=== PATIENT | female | born 1980 | race Caucasian/White ===

== ENCOUNTER 2023-07-18 17:57 | Emergency (ER) | payer OTHER, SELFPAY ==
[2023-07-18 18:30] VITALS: BP 148/78; PULSE 73; RESP 18; TEMP 36.8; O2SAT 98; BMI 36.7
--- NOTE | 2023-07-18 19:07 | ED_ITS ---
Discharge Plan Disposition Patient Disposition: Home, Self-Care Condition: Good Prescriptions Prescriptions: New sulfamethoxazole-trimethoprim [Bactrim DS] 800-160 mg tablet 1 tab PO Q12H Qty: 20 0RF mupirocin 2 % ointment 1 applic topical BID Qty: 15 0RF Rx Instructions: apply to q tip and apply to area in nostril Referrals Follow up/Referrals: Francie Maria APRN [Primary Care Provider] - See instructions Activity Restrictions/Add. Instructions Additional Instructions/Restrictions: finish antibiotics apply cream to area in nose return if symptoms worsen or no improvement follow up with pcp Clinical Impressions Clinical Impression: Cellulitis and abscess of face Impacted ear wax Qualifiers: Laterality: left Qualified Code(s): H61.22 - Impacted cerumen, left ear Instructions Patient Instructions: DI for Cellulitis -- Adult, DI for Cerumen Impaction Discharge ED Provider: Emmanuelle ([facility])Eduardo [facility] [place] HPI General Stated complaint: LT side jaw pain, ear ache Mode of Arrival: Ambulatory Source of Information: Patient Limitations: No Limitations Time Seen by Provider: 07/18/23 19:07 Description of Symptoms (Recalled from Triage Doc. by RN): Pt is complaining of pain in L jaw, ear, and down into neck. HEENT Symptoms (Recalled from RN notes): Yes Resp Symptoms (Recalled from RN notes): No Skin Symptoms (Recalled from RN notes): No MS Symptoms (Recalled from RN notes): No Functional Status (Recalled from RN notes): n/a History of Present Illness Provider Complaint: 43 yr old female presents for pain in the L jaw, ear, and down into neck. pt states she also has a bump on the inside nose and swelling Related Data Previous Rx's Medication Instructions Recorded mupirocin 2 % topical ointment 1 applic topical BID #15 grams 07/18/23 sulfamethoxazole 800 1 tab PO Q12H #20 tabs 07/18/23 mg-trimethoprim 160 mg tablet (Bactrim DS) Allergies Allergy/AdvReac Type Severity Reaction Status Date / Time No Known Allergies Allergy Verified 07/18/23 18:43 Worker's Comp Is this a Worker's Comp case?: No [facility] Disclaimer: The information contained in this section may have been updated after the patient was seen, as this information can be updated by other users. Social History , [employer] TECH[employer]ICIAN) Smoking Status: Smoker, status unknown alcohol intake: never current occupational status: employed Travel in the last 8 weeks: None ROS Obtained: Yes All systems reviewed & no additional complaints except as documented Constitutional Constitutional: Reports system reviewed and no additional complaints, except as documented and Reports as per HPI Eyes Eyes: Reports system reviewed and no additional complaints, except as documented and Reports as per HPI ENT Ears, Nose, Mouth, and Throat: Reports system reviewed and no additional complaints, except as documented, Reports as per HPI, Reports otalgia, Reports sore throat and Reports other (jaw pain) Cardiovascular Cardiovascular: Reports system reviewed and no additional complaints, except as documented Respiratory Respiratory: Reports system reviewed and no additional complaints, except as documented Gastrointestinal Gastrointestingal: Reports system reviewed and no additional complaints, except as documented Integumentary/Breasts Skin/Breast: Reports system reviewed and no additional complaints, except as documented Neurologic Neurologic: Reports system reviewed and no additional complaints, except as documented Endocrine Endocrine: Reports system reviewed and no additional complaints, except as documented Allergic/Immunologic Allergic/Immunologic: Reports system reviewed and no additional complaints, except as documented Physical Exam General General appearance: alert and in no apparent distress Head Head exam: atraumatic Eye Eye exam: Present normal appearance and PERRL ENT ENT exam: Present mucous membranes moist Expanded ENT Exam TM/Canal exam: Left TM: cerumen impaction Nose/Mouth Image: 1. red bump Respiratory Respiratory exam: Present normal lung sounds bilaterally Cardiovascular Cardiovascular exam: Present regular rate and normal rhythm Neurological Exam Neurological exam: Present alert and oriented X3 Skin Skin exam: Present warm, intact and normal color Medical Decision Making Medical Records Medical records reviewed: Yes I reviewed the patient's medical records. Emanuel Inquiry Pt receiving controlled substance: No Emanuel was queried for this patient: No Vital Signs: 07/18/23 18:30 Temperature 98.2 F Temperature Source Oral Pulse Rate [Right Radial] 73 Respiratory Rate 18 Blood Pressure [Right Arm] 148/78 H Blood Pressure Mean [Right Arm] 101 Blood Pressure Source [Right Arm] Automatic Cuff Blood Pressure Position [Right Arm] Sitting 02 Sat by Pulse Oximetry 98 Oxygen Delivery Method Room Air Lab Data Lab results reviewed: Yes I reviewed the patient's lab results.
[2023-07-18] MEDS: SULFA/TRIMETHOPRIM 1 TABLET 1 EACH PO (19:30)
[2023-07-18 19:34] VITALS: BP 148/78; PULSE 73; RESP 18; TEMP 36.8; O2SAT 98
== END 2023-07-18 19:34 | disposition home or self-care (01) ==
PROVIDERS: Emergency Provider Nurse Practitioner Family; PCP Nurse Practitioner
DX: L02.01 Cutaneous abscess of face (principal); L03.211 Cellulitis of face; H61.22 Impacted cerumen, left ear; R68.84 Jaw pain
CPT/HCPCS: 99204; 99212; G0463

== ENCOUNTER 2023-11-10 14:32 | Emergency (ER) | payer OTHER, SELFPAY ==
[2023-11-10 15:05] VITALS: BP 129/59; PULSE 71; RESP 20; TEMP 36.9; O2SAT 99; BMI 34.9
--- NOTE | 2023-11-10 15:32 | EXP.UTC ---
Discharge Plan Disposition Patient Disposition: Home, Self-Care Condition: Good Prescriptions Prescriptions: New ibuprofen 800 mg tablet 800 mg PO Q8H PRN (Reason: pain) Qty: 30 0RF Rx Instructions: Take with food No Action Orilissa 150 mg tablet 150 mg PO DAILY Qty: 30 3RF Referrals Follow up/Referrals: Francie Maria APRN [Primary Care Provider] - See instructions Activity Restrictions/Add. Instructions Additional Instructions/Restrictions: Follow up with primary care. Clinical Impressions Clinical Impression: Right shoulder pain Qualifiers: Chronicity: acute Qualified Code(s): M25.511 - Pain in right shoulder Instructions Patient Instructions: DI for Shoulder Pain Discharge ED Provider: Tabitha Willard [facility] General Stated complaint: right shoulder pain stiffness Mode of Arrival: Ambulatory Source of Information: Patient Limitations: No Limitations Time Seen by Provider: 11/10/23 15:32 Description of Symptoms (Recalled from Triage Doc. by RN): PATIENT C/O RIGHT SHOULDER PAIN WHEN LIFTING HER ARM. SHE STATES SHE RECENTLY HAD A TICK BITE TO RIGHT SIDE OF NECK. HEENT Symptoms (Recalled from RN notes): No Resp Symptoms (Recalled from RN notes): No Skin Symptoms (Recalled from RN notes): No MS Symptoms (Recalled from RN notes): Yes Functional Status (Recalled from RN notes): WNL History of Present Illness Provider Complaint: Pt reports right shoulder pain after push mowing her yard up and down a hill. She states that she has been taking Ibuprofen 800mg at home, but this has not helped. She reports shooting pain down her arm and numb fingers. She reports about a month ago she had a tick bite on the back of her neck. Related Data Previous Rx's Medication Instructions Recorded elagolix 150 mg tablet (Orilissa) 150 mg PO DAILY #30 tabs 08/13/23 ibuprofen 800 mg tablet 800 mg PO Q8H PRN pain #30 tabs 11/10/23 Allergies Allergy/AdvReac Type Severity Reaction Status Date / Time No Known Allergies Allergy Verified 08/13/23 15:04 Worker's Comp Is this a Worker's Comp case?: No [facility] Disclaimer: The information contained in this section may have been updated after the patient was seen, as this information can be updated by other users. Surgical History Hx of removal of cyst Next to her heart History of endometrial ablation Hx of tubal ligation Family History Other COPD (chronic obstructive pulmonary disease) Diabetes Social History Smoking Status: Smoker, status unknown alcohol intake: never current occupational status: employed Travel in the last 8 weeks: None ROS Obtained: Yes All systems reviewed & no additional complaints except as documented Constitutional Constitutional: Reports system reviewed and no additional complaints, except as documented Eyes Eyes: Reports system reviewed and no additional complaints, except as documented ENT Ears, Nose, Mouth, and Throat: Reports system reviewed and no additional complaints, except as documented Cardiovascular Cardiovascular: Reports system reviewed and no additional complaints, except as documented Respiratory Respiratory: Reports system reviewed and no additional complaints, except as documented Gastrointestinal Gastrointestingal: Reports system reviewed and no additional complaints, except as documented Genitourinary Female Genitourinary: Reports system reviewed and no additional complaints, except as documented Musculoskeletal Musculoskeletal: Reports arthralgias and Reports myalgias Integumentary/Breasts Skin/Breast: Reports system reviewed and no additional complaints, except as documented Neurologic Neurologic: Reports system reviewed and no additional complaints, except as documented Endocrine Endocrine: Reports system reviewed and no additional complaints, except as documented Hematologic/Lymphatic Henatologic/Lymphatic: Reports system reviewed and no additional complaints, except as documented Allergic/Immunologic Allergic/Immunologic: Reports system reviewed and no additional complaints, except as documented Physical Exam General General appearance: alert and in no apparent distress Head Head exam: atraumatic and normocephalic Eye Eye exam: Present normal appearance ENT ENT exam: Present normal exam and normal oropharynx Neck Neck exam: Present normal inspection Chest Chest inspection: Present normal inspection and symmetric chest wall rise Respiratory Respiratory exam: Present normal lung sounds bilaterally Cardiovascular Cardiovascular exam: Present regular rate and normal rhythm Abdominal Exam Abdominal exam: Present soft and normal bowel sounds Expanded Upper Extremity Exam Right: Shoulder exam: Present tenderness and tenderness over AC joint Arm exam: Present normal inspection Elbow exam: Present normal inspection Forearm/Wrist exam: Present normal inspection Hand exam: Present normal inspection Vascular exam: Normal capillary refill, radial pulse, ulnar pulse and brachial pulse Back Exam Back exam: Present normal inspection Neurological Exam Neurological exam: Present alert and oriented X3 Psychiatric Psychiatric exam: Present normal affect and normal mood Skin Skin exam: Present warm, dry and intact Lymphatic Lymphatic Findings: no adenopathy Medical Decision Making Emanuel Inquiry Pt receiving controlled substance: No Emanuel was queried for this patient: No Vital Signs: 11/10/23 15:05 Temperature 98.4 F Temperature Source Oral Pulse Rate [Left Brachial] 71 Respiratory Rate 20 Blood Pressure [Left Arm] 129/59 L Blood Pressure Mean [Left Arm] 82 Blood Pressure Source [Left Arm] Automatic Cuff Blood Pressure Position [Left Arm] Sitting 02 Sat by Pulse Oximetry 99 Oxygen Delivery Method Room Air Radiology Data #1: Image(s): Shoulder Image Reviewed: Yes I reviewed the patient's radiology results Preliminary Findings: Normal/NAD FINDINGS: Bones/joints: Normal. No acute fracture identified. Soft tissues: Normal. IMPRESSION: No acute findings.
[2023-11-10] MEDS: KETOROLAC 30MG/ML VIAL 30 MG IM (16:05)
[2023-11-10] MEDS: DEXAMETHASONE 4MG/ML 1ML VIAL 4 MG IM (16:05)
--- NOTE | 2023-11-10 16:11 | XR_ITS ---
PROCEDURE INFORMATION: Exam: XR Right Shoulder Exam date and time: 11/10/2023 4:21 PM Age: 43 years old Clinical indication: Shoulder; Right; Patient HX: States pain x2-3 weeks; Nki TECHNIQUE: Imaging protocol: Radiologic exam of the right shoulder. Views: 2 or more views. COMPARISON: No relevant prior studies available. FINDINGS: Bones/joints: Normal. No acute fracture identified. Soft tissues: Normal. IMPRESSION: No acute findings.
[2023-11-10 16:40] VITALS: BP 129/59; PULSE 71; RESP 20; TEMP 36.9; O2SAT 99
== END 2023-11-10 16:44 | disposition home or self-care (01) ==
PROVIDERS: Emergency Provider Nurse Practitioner Family; PCP Nurse Practitioner
DX: M25.511 Pain in right shoulder (principal); R20.0 Anesthesia of skin
CPT/HCPCS: 73030; 96372; 99212; 99214; G0463

== ENCOUNTER 2023-11-27 10:40 | Outpatient (CLI) | payer OTHER, SELFPAY ==
[2023-11-27 19:17] LABS: Basophils # 0.1 K/mm3 (0-0.2); Basophils % 0.7 % (0.1-2.0); Eosinophils # 0.3 K/mm3 (0.0-0.4); Eosinophils % 2.4 % (0.1-12.0); Hematocrit 46.4 % (37.0-47.0); Hemoglobin 15.1 g/dL (12.2-16.2); Lymphocytes # 3.4 K/mm3 (0.7-4.5); Lymphocytes % 29.4 % (10-50); Mean Corpuscular HGB Conc 32.5 g/dL (31.8-35.4); Mean Corpuscular Hemoglobin 31.2 pg (27.0-31.2); Mean Corpuscular Volume 95.9 fl (81-99); Mean Platelet Volume 9.2 fl (7.4-10.4); Monocytes # 0.4 K/mm3 (0.1-1.0); Monocytes % 3.7 % (1.7-9.3); Neutrophils # 7.4 K/mm3 (1.8-7.8); Neutrophils % 63.9 % (37.0-80.0); Platelet Count 308 K/mm3 (142-424); Red Blood Count 4.84 M/mm3 (4.20-5.40); Red Cell Distribution Width 13.7 % (11.5-17.5); White Blood Count 11.5 K/mm3 (4.8-10.8)
[2023-11-27 20:05] LABS: Alanine Aminotransferase 25 U/L (12-78); Albumin Level 4.4 g/dl (3.5-5.0); Albumin/Globulin Ratio 1.4 (1.1-1.8); Alkaline Phosphatase 90 U/L (38-126); Anion Gap 14.2 mEq/L (5-15); Aspartate Amino Transferase 27 U/L (14-36); Bilirubin,Total 0.7 mg/dl (0.2-1.3); Blood Urea Nitrogen 18 mg/dl (7-17); Calcium 9.3 mg/dl (8.4-10.2); Carbon Dioxide 23 mmol/L (22.0-30.0); Chloride 108 mmol/L (98-107); Chol/HDL Ratio 8.2 (1-3.5); Cholesterol 247 mg/dl (140-200); Estimated Glomerular Filt Rate 79 ml/min (>60); GFR (African American) 95 ML/MIN (>60); Globulin 3.1 g/dL (1.3-3.2); Glucose 88 mg/dl (74-100); HDL Cholesterol 30 mg/dl (40-60); Potassium 4.2 mmoL/L (3.5-5.1); Sodium 141 mmol/L (136-145); Total Protein,Serum 7.5 g/dl (6.3-8.2); Triglycerides 222 mg/dl (30-150); VLDL Cholesterol 44 mg/dL (0-40)
[2023-11-27 20:16] LABS: Direct LDL Cholesterol 149.35 mg/dL (100-129)
[2023-11-27 20:20] LABS: Hemoglobin A1C 5.4 % (4.0-6.0)
[2023-11-27 20:23] LABS: 25-OH Vitamin D, Total 28.7 ng/mL (30-100)
[2023-11-27 20:35] LABS: Thyroid Stimulating Hormone 1.01 uIU/mL (0.465-4.68)
[2023-11-27 20:54] LABS: Vitamin B12 274 pg/mL (239-931)
[2023-11-27 21:21] LABS: Microalbumin/Creatinine Ratio 3.3
[2023-11-27 21:23] LABS: Creatinine,Urine Random 233 mg/dL (Not Estab.)
== END 2023-11-27 23:59 | disposition home or self-care (01) ==
LOC: LAB.DROPOF 11-28 10:40
PROVIDERS: PCP Nurse Practitioner; Visit Provider Nurse Practitioner
DX: R73.01 Impaired fasting glucose (principal); E55.9 Vitamin D deficiency, unspecified
CPT/HCPCS: 36415; 80050; 80053; 80061; 82043; 82306; 82570; 82607; 83036; 84443; 85025

== ENCOUNTER 2024-02-26 19:11 | Outpatient (CLI) | payer OTHER, SELFPAY ==
[2024-02-26 19:22] LABS: 25-OH Vitamin D, Total 41.3 ng/mL (30-100)
[2024-02-26 19:47] LABS: Alanine Aminotransferase 20 U/L (12-78); Albumin/Globulin Ratio 1.3 (1.1-1.8); Alkaline Phosphatase 80 U/L (38-126); Anion Gap 9.3 mEq/L (5-15); Aspartate Amino Transferase 23 U/L (14-36); Bilirubin,Total 0.5 mg/dl (0.2-1.3); Blood Urea Nitrogen 14 mg/dl (7-17); Calcium 9.4 mg/dl (8.4-10.2); Carbon Dioxide 22 mmol/L (22.0-30.0); Chloride 110 mmol/L (98-107); Chol/HDL Ratio 6.2 (1-3.5); Cholesterol 223 mg/dl (140-200); Estimated Glomerular Filt Rate 78 ml/min (>60); GFR (African American) 95 ML/MIN (>60); Globulin 3.1 g/dL (1.3-3.2); Glucose 91 mg/dl (74-100); HDL Cholesterol 36 mg/dl (40-60); Potassium 4.3 mmoL/L (3.5-5.1); Sodium 137 mmol/L (136-145); Total Protein,Serum 7.1 g/dl (6.3-8.2); Triglycerides 143 mg/dl (30-150); VLDL Cholesterol 29 mg/dL (0-40)
[2024-02-26 19:58] LABS: Direct LDL Cholesterol 141.52 mg/dL (100-129)
[2024-02-26 20:17] LABS: Hemoglobin A1C 5.4 % (4.0-6.0)
[2024-02-26 20:35] LABS: Vitamin B12 568 pg/mL (239-931)
== END 2024-02-26 23:59 | disposition home or self-care (01) ==
LOC: LAB.DROPOF 19:12
PROVIDERS: PCP Nurse Practitioner; Visit Provider Nurse Practitioner
DX: R73.01 Impaired fasting glucose (principal); E53.8 Deficiency of other specified B group vitamins; E55.9 Vitamin D deficiency, unspecified; E78.5 Hyperlipidemia, unspecified
CPT/HCPCS: 80053; 80061; 82306; 82607; 83036

== ENCOUNTER 2024-03-23 10:45 | Outpatient (CLI) | payer OTHER, SELFPAY | END 2024-03-23 23:59 | disposition home or self-care (01) | LOC: LAB.DROPOF 03-25 11:52 | PROVIDERS: PCP Nurse Practitioner; Visit Provider Nurse Practitioner | DX: L02.415 Cutaneous abscess of right lower limb (principal); B95.7 Other staphylococcus as the cause of diseases classified elsewhere | CPT/HCPCS: 87070; 87077; 87186; 87205 ==

== ENCOUNTER 2024-07-13 08:40 | Outpatient (CLI) | payer OTHER, SELFPAY ==
--- NOTE | 2024-07-13 08:47 | XR_ITS ---
FINAL REPORT CLINICAL HISTORY: shoulder pain COMPARISON: None FINDINGS: RIGHT SHOULDER 2 views demonstrate no acute fracture or dislocation. The visualized joint spaces are normally aligned. The soft tissues are unremarkable. IMPRESSION: No acute bony abnormality. Reviewed, Interpreted and Dictated by Alex Hendrix MD Transcribed by Ivana Panchal Authenticated and . [facility]
--- NOTE | 2024-07-13 08:47 | XR_ITS ---
FINAL REPORT CLINICAL HISTORY: shoulder pain COMPARISON: None FINDINGS: LEFT SHOULDER 2 views of the left shoulder were obtained. There is no acute fracture or dislocation. The acromioclavicular and glenohumeral joints are intact. Small density in the distal supraspinatus tendon measuring 5 mm in greatest dimension may be related to calcific or ossific tendinitis. IMPRESSION: Small density distal supraspinatus tendon may be related to calcific or ossific tendinitis. Reviewed, Interpreted and Dictated by Alex Hendrix MD Transcribed by Ivana Panchal Authenticated and [facility]
== END 2024-07-13 23:59 | disposition home or self-care (01) ==
LOC: RAD 08:41
PROVIDERS: PCP Nurse Practitioner; Visit Provider Physician Assistant Surgical
DX: M25.511 Pain in right shoulder (principal); M25.512 Pain in left shoulder
CPT/HCPCS: 73030

== ENCOUNTER 2024-08-30 13:23 | Outpatient (CLI) | payer OTHER, SELFPAY ==
[2024-08-30 21:57] LABS: Coronavirus 19, PCR Not Detected (NotDetected); Influenza A, PCR Not Detected (NotDetected); Influenza B, PCR Not Detected (NotDetected); Respiratory Syncytial Virus Not Detected (NotDetected)
[2024-08-31 03:09] LABS: Human Rhinovirus Detected (NotDetected)
== END 2024-08-30 23:59 | disposition home or self-care (01) ==
LOC: LAB.DROPOF 08-31 12:52
PROVIDERS: PCP Nurse Practitioner; Visit Provider Nurse Practitioner
DX: J02.9 Acute pharyngitis, unspecified (principal)
CPT/HCPCS: 87631

== ENCOUNTER 2024-10-15 09:38 | Outpatient (CLI) | payer OTHER, SELFPAY ==
[2024-10-15 15:30] LABS: Coronavirus 19, PCR Not Detected (NotDetected); Human Rhinovirus Not Detected (NotDetected); Influenza A, PCR Not Detected (NotDetected); Influenza B, PCR Not Detected (NotDetected); Respiratory Syncytial Virus Not Detected (NotDetected)
== END 2024-10-15 23:59 | disposition home or self-care (01) ==
LOC: LAB.DROPOF 10-18 09:59
PROVIDERS: PCP Nurse Practitioner; Visit Provider Nurse Practitioner
DX: R05.9 Cough, unspecified (principal); R09.89 Other specified symptoms and signs involving the circulatory and respiratory systems
CPT/HCPCS: 87631

== ENCOUNTER 2024-12-06 11:48 | Outpatient (CLI) | payer OTHER, SELFPAY ==
[2024-12-06 19:17] LABS: Basophils # 0.1 K/mm3 (0-0.2); Eosinophils # 0.1 Kmm3 (0.0-0.4); Hematocrit 44.2 % (37.0-47.0); Immature Granulocytes # 0.01 10^3uL; Immature Granulocytes % 0.2 %; Lymphocytes % 50.5 % (10-50); Mean Corpuscular HGB Conc 31.7 g/dL (31.8-35.4); Mean Corpuscular Volume 91.7 fl (81-99); Mean Platelet Volume 10.8 fl (7.4-10.4); Monocytes # 0.4 K/mm3 (0.1-1.0); Monocytes % 6.8 % (1.7-9.3); Neutrophils # 2.4 K/mm3 (1.8-7.8); Neutrophils % 40.5 % (37.0-80.0); Nucleated Red Blood Cells # 0 10^3/uL; Nucleated Red Blood Cells % 0 %; Platelet Count 306 K/mm3 (142-424); Red Blood Count 4.82 M/mm3 (4.20-5.40); Red Cell Distribution Width 13.7 % (11.5-17.5); Red Cell Distribution Width-SD 46.4 fL; White Blood Count 5.9 K/mm3 (4.8-10.8)
[2024-12-06 19:48] LABS: Creatinine,Urine Random 150 mg/dL (Not Estab.); Microalbumin < 6.000 mg/L (0-16.7)
[2024-12-06 19:58] LABS: Alanine Aminotransferase 20 U/L (12-78); Albumin Level 4.3 g/dl (3.5-5.0); Albumin/Globulin Ratio 1.4 (1.1-1.8); Alkaline Phosphatase 79 U/L (38-126); Anion Gap 15.2 mEq/L (5-15); Aspartate Amino Transferase 23 U/L (14-36); Bilirubin,Total 0.7 mg/dl (0.2-1.3); Blood Urea Nitrogen 17 mg/dl (7-17); Calcium 10.1 mg/dl (8.4-10.2); Carbon Dioxide 24 mmol/L (22.0-30.0); Chloride 101 mmol/L (98-107); Chol/HDL Ratio 5.7 (1-3.5); Cholesterol 234 mg/dl (140-200); Estimated Glomerular Filt Rate 78 ml/min (>60); GFR (African American) 95 ML/MIN (>60); Glucose 93 mg/dl (74-100); HDL Cholesterol 41 mg/dl (40-60); Potassium 4.2 mmoL/L (3.5-5.1); Sodium 136 mmol/L (136-145); Total Protein,Serum 7.3 g/dl (6.3-8.2); Triglycerides 159 mg/dl (30-150); VLDL Cholesterol 32 mg/dL (0-40)
[2024-12-06 20:09] LABS: Direct LDL Cholesterol 138.59 mg/dL (100-129)
[2024-12-06 20:29] LABS: Thyroid Stimulating Hormone 1.56 uIU/mL (0.465-4.68)
[2024-12-06 20:31] LABS: HIV Combo NEGATIVE (Negative)
[2024-12-06 20:46] LABS: Hepatitis C Ab Qual. W/ RFX NEGATIVE (Negative)
[2024-12-06 20:47] LABS: Vitamin B12 439 pg/mL (239-931)
[2024-12-06 20:56] LABS: Hemoglobin A1C 6.3 % (4.0-6.0)
[2024-12-08 05:09] LABS: Hepatitis B Surface Antigen Negative (Negative)
--- OUTSIDE RECORDS SUMMARY | 2024-12-08 11:51 | XMS_ITS | Clinical Summary ---
Author Organization [facility] Address [address] [place] [address] Phone Care Team Providers Care Liquid Loader Name Role Phone Unavailable Primary Care Provider Unavailabl e Allergies No known active allergies Medications meclizine (ANTIVERT) 25 mg Oral TabletIndication s:BPV (benign positional vertigo), unspecified laterality Take 1 Tablet by mouth 3 times daily as needed for Dizziness. 25 Tablet 2 Active Additional Information Patient not taking.Reported on 10/02/2023 ondansetron (ZOFRAN) 4 mg Oral TabletIndication s:BPV (benign positional vertigo), unspecified laterality Take 1 Tablet by mouth every 6 hours as needed for Nausea. 15 Tablet 2 Active Additional Information Patient not taking.Reported on 10/02/2023 suvorexant (BELSOMRA) 20 mg Oral TabletIndication s:Insomnia, persistent Take 1 Tablet by mouth nightly as needed. 30 Tablet 2 3 Active Additional Information Patient not taking.Reported on 10/02/2023 traZODone (DESYREL) 50 mg Oral TabletIndication s:Insomnia, persistent Take 1 Tablet by mouth nightly. 30 Tablet 2 3 Active metoprolol succinate (TOPROL-XL) 25 mg Oral Tablet Sustained Release 24 hr TAKE 1 TABLET BY MOUTH EVERY DAY 90 Tablet 1 3 Active Additional Information Patient not taking.Reported on 10/02/2023 acetaminophen (TYLENOL) 500 mg Oral Tablet Take 500 mg by mouth every 4 hours as needed for Pain. Active Active Problems Patient Care Coordination No te Formatting of this note migh t be different from the original. 11/09/14 no show warning letter sent Virgilio Castellanos# [id number] 11/21/14 as expected 03/09/15 dismissal letter sent SEP Virgilio FLETCHER 05/31/15- Please do not schedule at [facility] due to multiple cancellations and New pt. No show. SAMINA WILDE 05/17/21 [id number] [facility] audit completed by Rose Sheikh RN on 09/09/2022. Problem Noted Date Diagnosed Date Chest pain at rest 05/28/2022 Vitamin deficiency 10/02/2014 HLD (hyperlipidemia) 10/02/2014 Menorrhagia 07/11/2014 Dysmenorrhea 07/11/2014 Obesity (BMI 30-39.9) 07/11/2014 Anxiety and depression 05/24/2014 Chronic back pain 05/23/2014 Immunizations Immunization Administration Dates Next Due Influenza Vaccine, Unspecified Formulation 04/20 Surgical History Surgery Date Site/Laterality Comments TUBAL LIGATION laparoscopic CYST REMOVAL from behind her heart (laser) as a child ENDOMETRIAL ABLATION 06/09/2014 - 06/08/2015 Medical History Medical History Date Comments Back pain, chronic Anxiety and depression Irregular uterine bleeding 06/09/2014 Have had constant periods non stop for 2 months. Anxiety 06/09/2013 Been longer but not sure when Heart murmur 1981 When I was born but went away Depression 03/09/2014 Been longer just not sure when Dysmenorrhea 07/11/2014 Family History Medical History Relation Name Comments Diabetes Father Tavo Sarabia High Cholesterol Father Tavo Sarabia Cancer Maternal Grandmother Wandy Cao unkn own type Diabetes Paternal Grandmother Adriana Roldan etcalf not [place] Heart Failure Paternal Grandmother Mental Retardation Paternal Uncle Lyle Cao Relation Name Status Comments Father Tavo Sarabia Maternal Grandmother Wandy Cao Mother Woody Rocha Paternal Grandmother Paternal Uncle Lyle Cao Social History Tobacco Use Types Packs/Day Years Used Date Smoking Tobacco: Every Day Cigarettes 0.5 5.9 Started: 2016; Last attempted to quit: 05/21/2022 Smokeless Tobacco: Never Tobacco Cessation:Ready to Q uit: Not Asked; Counseling Given: Not Answered Comments:Started back up 2 months ago Alcohol Use Standard Drinks/Week Comments No 0 (1 standard drink = 0.6 oz pur e alcohol) PHQ-2 Answer Date Recorded PHQ-2 Score 5 10/27/2018 Sexually Active Control Partners Comments Yes Injection, Surgical Male Depo Inj ection Comments No Sex and Gender Information Value Date Recorded Sex Assigned at Not on file Legal Sex Female 8:17 PM EDT Gender Identity Not on file Sexual Orientation Not on file Obstetrics History Para Term AB IAB SAB Ectopic Multiple Livin g Live Births 3 3 3 Date Outcome GA Total Labor Labor/2nd/3rd Weight Sex Type Anes PTL Desiree A1 A5 Name Clin Term Vag-Spo nt Term Vag-Spo nt Term Vag-Spo nt Last Filed Vital Signs Vital Sign Reading Time Taken Comments Blood Pressure 118/84 10/02/2023 10:16 AM EDT Pulse 84 06/20/2022 8:11 AM EST Temperature 36.5 C (97.7 F) 05/28/2022 2:38 PM EST Respiratory Rate 14 04/25/2022 7:23 AM EST Oxygen Saturation 97% 06/20/2022 8:11 AM EST Inhaled Oxygen Concentration - - Weight 82.1 kg (181 lb) 10/02/2023 10:16 AM EDT Height 152.4 cm (5') 06/20/2022 8:11 AM EST Body Mass Index 35.35 06/20/2022 8:11 AM EST Plan of Treatment Health Maintenance Due Date Last Done Comments DTaP/TDaP/Td (1 - Tdap) 01/27/2000 Hepatitis B Vaccine (1 of 3 - 19+ 3-dose series) 01/27/2000 Pneumococcal Vaccine 0-49 (1 of 2 - PCV) 01/27/2000 HPV/Pap Cotest 2011 Annual Wellness Exam 09/30/2015 09/29/2014 Breast Cancer Screening 2021 Cervical Cancer Screening 03/30/2021 Pap Smear 03/30/2021 03/30/2018, 09/30/2014 COVID-19 Vaccine ( - 2023-2 5 season) 2024 Influenza Vaccine (Season Ended) 2025 04/15/2018, 02/24/2015 (Declined), 04/20/2014 Meningococcal B Vaccine Aged Out No l onger eligible based on patient's age to complete this topic Goals Goal Patient Goal Type Associated Problems Recent Progress Patient-Stated? Author Maintain a healthy diet, exercise regularly and maintain an ideal body weight General No July Hammond LPN Stay Tobacco Free Lifestyle No July Hammond LPN Procedures Procedure Name Priority Date/Time Associated Diagnosis Comments ASSISTANT READING TEACHER CYTOLOGY REQUEST (PAP ONLY) Routine 03/30/2018 11:46 AM EDT Pap smear for cervical cancer screening from Last 3 Months or Most Recently Relevant to Health Maintenance Results * ASSISTANT READING TEACHER CYTOLOGY REQUEST (PAP ONLY) (03/30/2018 11:46 AM EDT) CASE REPORT Gynecologic Cytology Report Case: [id number] Authorizing Provider: Oralia Chi MD Collected: 03/30/2018 1146 Ordering Location: [facility] Received: 03/30/2018 1146 First Screen: [place] CT Specimen: LIQUID-BASED PAP - CERVICAL/ENDOCERV ICAL, Cervix, Endocervical 03/31/2018 9:34 AM EDT [facility] PAP FINAL DIAGNOSIS Negative for intraepithelial lesion or malignancy 03/31/2018 9:34 AM EDT [facility] at 0933 EDT MICROSCOPIC DESCRIPTION Microscopic examination is performed and the findings corroborate the diagnosis. 03/31/2018 9:34 AM EDT [facility] PAP SMEAR ADEQUACY Satisfactory for evaluation 03/31/2018 9:34 AM EDT [facility] ENDOCERVICAL T-ZONE Transformation zone absent. 03/31/2018 9:34 AM EDT [facility] EMBEDDED IMAGES 9:34 AM EDT [facility] PAP DISCLAIMER The Pap Smear is a screening test that aids in the detection of cervical cancer and cancer precursors. Both false positive and false negative results can occur. The test should be used at regular intervals, and positive results should be confirmed before definitive therapy. Processed using the ThinPrep Powerhouse Tender Automated cytology screening device (Remotemedical). 03/31/2018 9:34 AM EDT [facility] Thin Prep ENDOCERVICAL STRUCTURE / Unknown 03/30/2018 11:46 AM EDT 03/30/2018 11:46 AM EDT Oralia Chi MD CYTOLOGY ORDERABLES [place] [address] from Last 3 Months or Most Recently Relevant to Health Maintenance Insurance
--- OUTSIDE RECORDS SUMMARY | 2024-12-08 11:51 | XMS_ITS | Patient Health Record ---
Author Organization [facility] Address [address] [place] [address] Care Team Providers Care Director Compensation Name Role Phone Oralia Chi Primary Care Provider UnavailTavo Del Angel Unavailable [phone] Allergies Allergen (clinical drug ingredient) Drug/Non Drug Allergy documented on EMR Reaction Allergy Type Onset Date Status Iodine swelling, rash Drug Allergy Ac tive Reason For Referral No Information Medications Medication SIG (Take, Route, Frequency, Duration) Notes Start Date End Date Status oxyCODONE-Acetaminophen 5-325 MG 1 tablet as needed Orally three times a day; Duration: 30 days 03/30/2022 Not-Takin g Zofran Not-Taking Meclizine HCl 25 MG 1 tablet as needed Orally Once a day; Duration: 30 day(s) Active Immunizations Vaccine Route Administration Date Status Comme nts Influenza (split), 3 yrs and above Unknown 07/03/2021 R efused Influenza (split), 3 yrs and above Unknown 08/22/2021 R efused Influenza (split), 3 yrs and above Unknown 11/26/2021 R efused Social History Tobacco Use: Social History Observation Description Date Details (start date - stop date) Current Smoker NA - NA Tobacco Use/Smoking Question Answer Notes Are you a current smoker How often do you smoke cigarettes? every day How many cigarettes a day do you smoke? 04-28 Alcohol Screen (Audit-C) Question Answer Notes Did you have a drink containing alcohol in the p ast year? No Points 0 Interpretation Negative Tobacco use other than smoking: Question Answer Notes Are you an other tobacco user? No Problems Problem Type SNOMED Code ICD Code Onset Dates Problem Status W/U Status Risk Notes Problem Chronic pain syndrome (657292843) Chronic pain syndrome (G89.4) Active confirmed Problem Solitary sacroiliitis (762559728) Sacroiliitis, not elsewhere classified (M46.1) Active confirmed Problem Lumbosacral spondylosis without myelopathy (disorder) (11661884) Spondylosis without myelopathy or radiculopathy, lumbosacral region (M47.817) Active confirmed Problem Degeneration of lumbar intervertebral disc (86216822) Degeneration of lumbar or lumbosacral intervertebral disc (M51.37) Active confirmed Problem Lumbosacral spondylosis without myelopathy (11747068) Lumbosacral spondylosis without myelopathy (M47.817) Active confirmed Problem Cervical spondylosis without myelopathy (837497494) Cervical spondylosis without myelopathy (M47.812) Active confirmed Problem Right knee pain (852184930668414) Right knee pain (M25.561) Active confirmed Problem Cervical spondylosis (761101143) Cervical spondylosis (M47.812) Active confirmed Problem Osteoarthritis of hip (550533361) Osteoarthritis of hip, unspecified laterality, unspecified osteoarthritis type (M16.9) Active confirmed Plan Of Treatment Pending Test Test Name Order Date [facility] Profile 07/03/2021 [facility] Profile 08/22/2021 [facility] Profile 11/26/2021 [facility] Profile 03/29/2022 [facility] Profile 09/27/2022 XR HIP RIGHT AP AND LATERAL 07/03/2021 MRI CERVICAL SPINE WO CONTRAST 3 MRI LUMBAR SPINE WO CONTRAST 07/03/2021 MRI LUMBAR SPINE WO CONTRAST 09/27/2022 XR SACRUM AND COCCYX 09/27/2022 Insurance Providers Payer Name Payer Address Payer Phone Subscriber Number Group Number Insured Name Patient Relationship to Insured Coverage Start Date Coverage End Date [employer] [place] [address] [address] [place] [address] [id number] Monica Bojorquez Self - patient is the insured [facility] [address] [place] [address] [id number] Monica Bojorquez Self - patient is the insured 1 2 Medical (General) History Medical History History ICD Code ALLERGIES FIBROMYALGIA Surgical History Surgery Date(Month/Year) CYST REMOVED FROM CHEST [phone] TUBAL LIGATION 2006
== END 2024-12-06 23:59 | disposition home or self-care (01) ==
LOC: LAB.DROPOF 12-08 11:49
PROVIDERS: PCP Nurse Practitioner; Visit Provider Nurse Practitioner
DX: E53.8 Deficiency of other specified B group vitamins (principal); E78.5 Hyperlipidemia, unspecified; R73.01 Impaired fasting glucose; Z11.59 Encounter for screening for other viral diseases
CPT/HCPCS: 80053; 80061; 80074; 82043; 82570; 82607; 83036; 84443; 85025; 87340; 87389

== ENCOUNTER 2025-01-08 09:44 | Emergency (ER) | payer OTHER, SELFPAY ==
[2025-01-08] VITALS (9 sets, daily range): BP systolic 103–137; BP diastolic 58–105; PULSE 64–98; RESP 12–16; TEMP 36.8; O2SAT 99–100; BMI 34.5
[2025-01-08 09:52] LABS: Microscopic, Urine URINE MICROSCOPIC (MICROSCOPIC)
--- OUTSIDE RECORDS SUMMARY | 2025-01-08 09:53 | XMS_ITS | Clinical Summary ---
Author Organization [employer] [facility] are Address [address] [place], [place] [address] Phone Care Team Providers Care Mri Ct Tech Name Role Phone Rodeo Clown Unavailable Unavailable Conditions or Problems No information available. Medications No information available. Medications Administered No information available. Allergies, Adverse Reactions, Alerts No information available. Results No information available. Plan of Care No information available. Procedures No information available. Vital Signs No information available. Immunizations No information available. Advance Directives No information available.
--- OUTSIDE RECORDS SUMMARY | 2025-01-08 09:55 | XMS_ITS | Clinical Summary ---
Author Organization [facility] Address [address] [place] [address] Phone Care Team Providers Care Supplier Relationship Director Name Role Phone Unavailable Primary Care Provider [...] no show warning letter sent Virgilio Castellanos# [id number] 11/21/14 as expected 03/09/15 dismissal letter sent SEP Virgilio FLETCHER 05/31/15- Please do not schedule at [facility] due to multiple cancellations and New pt. No show. SAMINA WILDE 05/17/21 [id number] [facility] audit completed by Rose Sheikh RN on [...] - 2023-2 5 season) 2024 Influenza Vaccine (#1) 2025 8, 02/24/2015 (Declined), 04/20/2014 Meningococcal B Vaccine Aged [...] Procedure Name Priority Date/Time Associated Diagnosis Comments GENOMICS SCIENTIST CYTOLOGY REQUEST (PAP ONLY) Routine 03/30/2018 11:46 AM EDT Pap smear for cervical cancer screening from Last 3 Months or Most Recently Relevant to Health Maintenance Results * GENOMICS SCIENTIST CYTOLOGY REQUEST (PAP ONLY) (03/30/2018 11:46 AM EDT) CASE REPORT Gynecologic Cytology Report Case: [id number] Authorizing Provider: Oralia Chi MD Collected: 03/30/2018 1146 Ordering Location: [facility] Received: 03/30/2018 1146 First Screen: [place] CT Specimen: LIQUID-BASED PAP - CERVICAL/ENDOCERV ICAL, Cervix, Endocervical 03/31/2018 9:34 AM EDT [facility] PAP FINAL DIAGNOSIS Negative for intraepithelial lesion or malignancy 03/31/2018 9:34 AM EDT [facility] at 0933 EDT MICROSCOPIC DESCRIPTION Microscopic examination is performed and the findings corroborate the diagnosis. 03/31/2018 9:34 AM EDT [facility] PAP SMEAR ADEQUACY Satisfactory for evaluation 03/31/2018 9:34 AM EDT [facility] ENDOCERVICAL T-ZONE Transformation zone absent. 03/31/2018 9:34 AM EDT [facility] EMBEDDED IMAGES 9:34 AM EDT [facility] PAP DISCLAIMER The Pap Smear is a screening test that aids in the detection of cervical cancer and cancer precursors. Both false positive and false negative results can occur. The test should be used at regular intervals, and positive results should be confirmed before definitive therapy. Processed using the ThinPrep Typists Supervisor Automated cytology screening device (BeCouply). 03/31/2018 9:34 AM EDT [facility] Thin Prep ENDOCERVICAL STRUCTURE / Unknown 03/30/2018 11:46 AM EDT 03/30/2018 11:46 AM EDT us Oralia Chi MD CYTOLOGY ORDERABLES [place] [address] from Last 3 Months or Most Recently Relevant to Health Maintenance Insurance
--- OUTSIDE RECORDS SUMMARY | 2025-01-08 09:55 | XMS_ITS | Patient Health Record ---
Author Organization [facility] Address [address] [place] [address] Care Team Providers Care Civil Engineering Specialist Name Role Phone Oralia Chi Primary Care Provider UnavailTavo Del Angel Unavailable [phone] Allergies Allergen (clinical drug ingredient) Drug/Non Drug [...] Status Risk Notes Problem Chronic pain syndrome (888688230) Chronic pain syndrome (G89.4) Active confirmed Problem Solitary sacroiliitis (979821823) Sacroiliitis, not elsewhere classified (M46.1) Active confirmed Problem Lumbosacral spondylosis without myelopathy (disorder) (14090292) Spondylosis without myelopathy or radiculopathy, lumbosacral region (M47.817) Active confirmed Problem Degeneration of lumbar intervertebral disc (21769637) Degeneration of lumbar or lumbosacral intervertebral disc (M51.37) Active confirmed Problem Lumbosacral spondylosis without myelopathy (59797119) Lumbosacral spondylosis without myelopathy (M47.817) Active confirmed Problem Cervical spondylosis without myelopathy (492986698) Cervical spondylosis without myelopathy (M47.812) Active confirmed Problem Right knee pain (364143648746230) Right knee pain (M25.561) Active confirmed Problem Cervical spondylosis (486749032) Cervical spondylosis (M47.812) Active confirmed Problem Osteoarthritis of hip (821007867) Osteoarthritis of hip, unspecified laterality, unspecified osteoarthritis [...] Date [employer] [place] [address] [address] [place] [address] [phone] [id number] Monica Bojorquez Self - patient is the insured [facility] [address] [place] [address] [id number] Monica Bojorquez Self - patient is the insured 1 2 Medical (General) History Medical History History ICD Code ALLERGIES FIBROMYALGIA Surgical History Surgery Date(Month/Year) CYST REMOVED FROM CHEST [phone] TUBAL LIGATION 2006
--- NOTE | 2025-01-08 10:04 | CT_ITS ---
PROCEDURE INFORMATION: Exam: CT Abdomen And Pelvis With Contrast Exam date and time: 01/08/2025 11:09 AM Age: 44 years old Clinical indication: Other: Diarrhea, upper abdominal pain TECHNIQUE: Imaging protocol: Computed tomography of the abdomen and pelvis with contrast. Radiation optimization: All CT scans at this facility use at least one of these dose optimization techniques: automated exposure control; mA and/or kV adjustment per patient size (includes targeted exams where dose is matched to clinical indication); or iterative reconstruction. Contrast material: ISOVUE; Contrast volume: 75 ml; Contrast route: IV; COMPARISON: No relevant prior studies available. FINDINGS: Liver: Normal. No mass. Gallbladder and biliary ducts: Gallstones in the gallbladder. Pancreas: Normal. No ductal dilation. Spleen: Normal. No splenomegaly. Adrenal glands: Normal. No mass. Kidneys and ureters: Normal. No hydronephrosis. Stomach and bowel: Unremarkable. No obstruction. No mucosal thickening. Appendix: Normal appendix Intraperitoneal space: Minimal free fluid in the pelvis Vasculature: Unremarkable. No abdominal aortic aneurysm. Lymph nodes: Unremarkable. No enlarged lymph nodes. Urinary bladder: Unremarkable as visualized. Reproductive: Unremarkable as visualized. Bones/joints: Unremarkable. No acute fracture. Soft tissues: Unremarkable. IMPRESSION: Gallstones in the gallbladder. Normal appendix Minimal free fluid in the pelvis
--- NOTE | 2025-01-08 10:11 | ED_ITS ---
Discharge Plan Disposition Patient Disposition: Home, Self-Care Prescriptions Prescriptions: New dicyclomine 10 mg capsule 10 mg PO QID PRN (Reason: abdominal pain) Qty: 14 0RF No Action metformin [Glucophage XR] 500 mg tablet extended release 24 hr 500 mg PO DAILY Qty: 30 2RF atorvastatin [Lipitor] 10 mg tablet 10 mg PO DAILY Qty: 30 2RF metronidazole 500 mg tablet 500 mg PO TID 7 Days Qty: 21 0RF hyoscyamine sulfate 0.125 mg tablet 0.125 mg PO QID PRN (Reason: diarrhea or abdominal cramping) Qty: 30 0RF Referrals Follow up/Referrals: Francie Maria APRN [Primary Care Provider, Family Practice] - See instructions Romain Kaplan II, MD [Staff Physician, Gastroenterology] - See instructions Chris Quezada MD [Staff Physician, General Surgery] - See instructions Activity Restrictions/Add. Instructions Additional Instructions/Restrictions: You were found to have gallstones in your gallbladder but no evidence of inflammation to the gallbladder itself. I given you referral to Dr. Lipscomb, our general surgeon. You will likely need to have the gallbladder removed on an outpatient basis. I have also given you referral to Dr. Kaplan, our cut off machine unloader, for follow-up given your intermittent diarrhea and abdominal pain. I do feel some of this could be related to your metformin and I encourage you to follow-up with your primary care physician to discuss further treatment options for your prediabetes. I am prescribing Bentyl to help with abdominal cramping. In addition to this, you can take Tylenol and ibuprofen to help with pain. If you develop any new or worsening symptoms, such as worsening abdominal pain, uncontrollable nausea and vomiting, or if you become concerned for your health for any reason, return to the emergency department for evaluation peer Clinical Impressions Clinical Impression: Cholelithiasis, Intermittent abdominal pain, Intermittent diarrhea Instructions Patient Instructions: DI for Acute Abdominal Pain Print Language Print Language: Arabic Discharge ED Provider: Pradeep Vila Adult HPI General Chief complaint: Abdominal Pain Stated complaint: stomach pain Time Seen by Provider: 01/08/25 09:54 Mode of Arrival: Ambulatory Source of Information: Patient Description of Symptoms (Recalled from ER Triage Doc. by RN): patient states she has been having abdominal pain that is burning and sharp intermittent she reports this has been going on for one month every since they increased the dose of her metformin History of Present Illness HPI narrative: Monica Gomes is a 44-year-old with a history of prediabetes on metformin who presents to the emergency department for complaints of intermittent sharp abdominal pain as well as diarrhea. Patient states that she was started on metformin approximately a year ago at 500 mg. She states that she developed diarrhea and intermittent abdominal pain at that time. She states that they decrease her dose to 250 mg and took her off of it for a few days initially and her symptoms improved. She states that 1 month ago, her PCP increased the dose again to 500 mg again and she developed symptoms again. She states that she was taken off the medication and given antibiotics and symptoms improved approximately 2 weeks ago. However over the last week and a half, after finishing antibiotics and starting medication again, her symptoms have recurred. She notes that she is going on her honeymoon soon and is concerned it is not just medication related but could be related to her gallbladder or some other pathology. She states that the pain that she felt this morning is the same pain that she had felt before. She states that her diarrhea is not bloody and sometimes happens after eating but sometimes she can go without diarrhea. She denies any alcohol use. She denies any previous abdominal surgeries. She denies any dysuria or hematuria but states that she did have some mild right flank pain this morning. Related Data Previous Rx's ?Medication ?Instructions ?Recorded atorvastatin 10 mg tablet (Lipitor) 10 mg PO DAILY #30 tabs 12/13/24 metformin 500 mg tablet,extended 500 mg PO DAILY #30 t abs 12/13/24 release 24 hr (Glucophage XR) metronidazole 500 mg tablet 500 mg PO TID 7 days #21 t abs 12/16/24 hyoscyamine sulfate 0.125 mg tablet 0.125 mg PO QID MA N diarrhea or 01/06/25 abdominal cramping #30 tabs dicyclomine 10 mg capsule 10 mg PO QID PRN abdominal p ain 01/08/25 #14 caps Allergies Allergy/AdvReac Type Severity Reaction Status Date / Time No Known Allergies Allergy Verified 12/13/24 13:01 [facility] Disclaimer: The information contained in this section may have been updated after the patient was seen, as this information can be updated by other users. Medical History Cellulitis of right thigh Abscess of right thigh Hyperlipidemia Family history of breast cancer in female Encounter for screening for malignant neoplasm of breast Vitamin D deficiency Vitamin B12 deficiency IFG (impaired fasting glucose) Surgical History Hx of removal of cyst Next to her heart History of endometrial ablation Hx of tubal ligation Family History Other COPD (chronic obstructive pulmonary disease) Diabetes Social History Smoking Status: Current every day smoker alcohol intake: never current occupational status: employed Travel in the last 8 weeks?: None Have you lived/traveled outside US in past 30 days?: No Contact w/someone who lives/traveled outside US past 30 days?: No Exposure to someone with infectious disease in past 14 days?: No Do you have a fever (greater than 100.4 F or 38 C)?: No Have you tested positive for COVID-19?: No Exposed to someone with COVID-19 in past 14 days?: No Do you have a sore throat?: No Do you have a cough?: No Do you have any weakness?: No Do you have any diarrhea?: No Are you experiencing any unusual bleeding?: No Do you have any muscle aches/pain?: No Do you have any abdominal pain?: Yes Are you experiencing loss of taste or smell?: No Other Medical History Have you received the Pneumonia Vaccine: No ROS Obtained: Yes Systems reviewed as appropriate & no additional complaints except as documented Physical Exam General General appearance: alert and in no apparent distress Head Head exam: atraumatic Eye Eye exam: Present normal appearance ENT ENT exam: Present normal external ear exam Neck Neck exam: Present full ROM Chest Chest inspection: Present symmetric chest wall rise Respiratory Respiratory exam: Present normal lung sounds bilaterally; Absent respiratory distress, wheezes or stridor Cardiovascular Cardiovascular exam: Present regular rate and normal rhythm Abdominal Exam Abdominal exam: Present soft and tenderness (mild epigastric tenderness); Absent distention or guarding Extremities Exam Extremities exam: Present normal inspection Back Exam Back exam: Present normal inspection Neurological Exam Neurological exam: Present alert and oriented X3 Psychiatric Psychiatric exam: Present normal affect Skin Skin exam: Present warm and dry Medical Decision Making Medical Records Screening: Per USPSTF and CDC recommendations, given the prevalence of disease in our region, it is our hospital?s policy to screen for HIV and viral Hepatitis for all patients aged 18 and over and those with ongoing risk factors. Emanuel Inquiry Pt receiving controlled substance: No Vital Signs: 01/08/25 09:51 01/08/25 09:53 01/08/25 09:57 Temperature 98.3 F 98.3 F Temperature Source Oral Oral Pulse Rate 97 H 98 H Pulse Rate [Right Radial] 98 H Respiratory Rate 15 15 Blood Pressure 137/105 H 137/105 H Blood Pressure [Right Arm] 137/105 H Blood Pressure Mean Blood Pressure Mean [Right Arm] 115 Blood Pressure Source Automatic Cuff Blood Pressure Source [Right Arm] Automatic Cuff Blood Pressure Position Supine Blood Pressure Position [Right Arm] Sitting 02 Sat by Pulse Oximetry 100 100 100 Oxygen Delivery Method Room Air Room Air 01/08/25 10:44 01/08/25 10:45 01/08/25 11:00 Temperature Temperature Source Pulse Rate 76 76 75 Pulse Rate [Right Radial] Respiratory Rate 14 Blood Pressure 118/58 L 118/58 L 133/78 Blood Pressure [Right Arm] Blood Pressure Mean Blood Pressure Mean [Right Arm] Blood Pressure Source Automatic Cuff Blood Pressure Source [Right Arm] Blood Pressure Position Supine Blood Pressure Position [Right Arm] 02 Sat by Pulse Oximetry 100 100 99 Oxygen Delivery Method Room Air 01/08/25 11:31 01/08/25 12:28 01/08/25 12:29 Temperature 98.3 F Temperature Source Pulse Rate 71 64 65 Pulse Rate [Right Radial] Respiratory Rate 16 12 Blood Pressure 111/84 103/67 L 103/67 L Blood Pressure [Right Arm] Blood Pressure Mean 91 Blood Pressure Mean [Right Arm] Blood Pressure Source Blood Pressure Source [Right Arm] Blood Pressure Position Blood Pressure Position [Right Arm] 02 Sat by Pulse Oximetry 100 100 Oxygen Delivery Method Lab Data Lab Results 01/08/25 09:49: Urine Color Yellow, Urine Appearance Clear, Urine pH 6.0, Ur Specific [place] <= 1.005, Urine Protein Negative, Urine Glucose (UA) Negative, Urine Ketones Negative, Urine Blood Negative, Urine Nitrate Negative, Urine Bilirubin Negative, Urine Urobilinogen 0.2, Ur Leukocyte Esterase Negative, Urine RBC None, Urine WBC None, Ur Squamous Epith Cells 5-10, Urine Bacteria None 01/08/25 09:57: WBC 7.3, RBC 5.04, Hgb 14.9, Hct 43.8, MCV 86.9, MCH 29.6, MCHC 34.0, RDW 12.4, Plt Count 354, MPV 9.7, Neut % (Auto) 49.0, Lymph % (Auto) 43.8, [place] % (Auto) 5.1, Eos % (Auto) 0.8, Baso % (Auto) 1.0, Neut # (Auto) 3.6, Lymph # (Auto) 3.2, [place] # (Auto) 0.4, Eos # (Auto) 0.1, Baso # (Auto) 0.1, Sodium 135 L, Potassium 3.9, Chloride 105, Carbon Dioxide 25, Anion Gap 8.9, BUN 11, Creatinine 0.70, Estimated Creat Clear 131, Estimated GFR 91, Est GFR ( Amer) 111, Glucose 111 H, Calcium 9.5, Total Bilirubin 0.2, AST 29, ALT 27, Alkaline Phosphatase 90, Total Protein 8.1, Albumin 4.0, Globulin 4.1 H, A lbumin/Globulin Ratio 1.0 L, Lipase 71, Serum HCG, Qual Negative 01/08/25 09:57 01/08/25 09:57 Orders (Tests/Meds): ED MEDICATIONS Discontinued Medications Generic Name Dose Route Start Last Admin Trade Name Freq PRN Reason Stop Dose Admin Iopamidol 75 ml 01/08/25 11:07 01/08/25 11:09 Iopamidol-370 (76%);100ml Bottle IV 01/08/25 11:08 75 ml ONCE ONE Administration Sodium Chloride 10 ml 01/08/25 11:07 01/08/25 11:09 Sodium Chloride 0.9% 10ml Syr (Rad Only) IV 01/08/25 11:08 10 ml ONCE ONE Administration ORDERS Category Date Time Status CT abdomen pelvis w con Stat Cat Scan 01/08/25 10:04 Completed CBC w/Auto Diff [Complete Blood Count Auto Diff] Stat Lab 01/08/25 09:57 Completed CMP [Comprehensive Metabolic Panel] Stat Lab 01/08/25 09:57 Completed Lipase Stat Lab 01/08/25 09:57 Completed Serum [HCG Qualitative, Serum] Stat Lab 01/08/25 09:57 Completed UA [Urinalysis and Microscopic] Stat Lab 01/08/25 09:49 Completed Medical Decision Narrative: Monica Gomes is a 44-year-old with a history of prediabetes on metformin who presents to the emergency department for complaints of intermittent sharp abdominal pain as well as diarrhea. Patient states that she was started on metformin approximately a year ago at 500 mg. She states that she developed diarrhea and intermittent abdominal pain at that time. She states that they decrease her dose to 250 mg and took her off of it for a few days initially and her symptoms improved. She states that 1 month ago, her PCP increased the dose again to 500 mg again and she developed symptoms again. She states that she was taken off the medication and given antibiotics and symptoms improved approximately 2 weeks ago. However over the last week and a half, after finishing antibiotics and starting medication again, her symptoms have recurred. She notes that she is going on her honeymoon soon and is concerned it is not just medication related but could be related to her gallbladder or some other pathology. She states that the pain that she felt this morning is the same pain that she had felt before. She states that her diarrhea is not bloody and sometimes happens after eating but sometimes she can go without diarrhea. She denies any alcohol use. She denies any previous abdominal surgeries. She denies any dysuria or hematuria but states that she did have some mild right flank pain this morning. On arrival, patient is hemodynamically stable, heart within normal limits, breathing carefully on room air with appropriate oxygen saturation. Physical exam, as stated above, revealed overall well-appearing female in no distress. Cardiopulmonary exams unremarkable. She has very mild tenderness in the epigastric region without guarding or rebound. Abdomen is soft and nondistended. The remainder of her physical exam is grossly unremarkable. Differential diagnosis includes, but is not limited to: Medication side effect, acute pancreatitis, acute cholecystitis, biliary colic, choledocholithiasis, peptic ulcer disease, colitis, enteritis, diverticulitis, urinary tract infection, among others. The most morbid conditions were considered and workup was based on these. Workup in the emergency department included: CT abdomen pelvis with IV contrast, CBC, CMP, lipase, test, stool culture, urinalysis. Laboratory and urine studies interpreted by me personally. No leukocytosis, no anemia, electrolytes showed mild hyponatremia but nonactionable. Electrolytes otherwise within normal limits. No LIO. Glucose within normal range. Liver enzymes and bilirubin within normal range. Lipase normal at 71. test. Urine without evidence of infection or hematuria. CT imaging was interpreted by me personally. Patient does appear to have gallstones but there is no pericholecystic fluid, no inflammatory changes surrounding the gallbladder. No dilation of the biliary duct. The remainder of the CT abdomen pelvis is unremarkable. See final radiology report for details. Throughout the patient's ED visit, she has remained stable. Is felt that most of her symptomatology is related to her metformin given that it always coincides when she takes it/takes the higher dose, however there could be a component of biliary colic given she has gallstones and it is sometimes associated with eating, however there is no evidence of acute cholecystitis or choledocholithiasis. Given this, will refer to Dr. Lipscomb with general surgery for follow-up regarding her cholelithiasis. I will also refer to Dr. Kaplan with GI given her intermittent abdominal pain as well as diarrhea. I did encourage her to follow-up with her primary care physician to discuss her metformin use as this could be contributing significantly to her symptoms and she may need to be on different medication. Return precautions were given. All questions were answered. She demonstrated understanding and was in agreement this plan. She was then discharged from the emergency department in stable condition with a prescription for Bentyl and instructions to take Tylenol and ibuprofen to help with her symptoms. Critical Care Critical Care Time Critical Care Time: No
[2025-01-08 10:16] LABS: Bilirubin,Urine Negative (Negative); Color,Urine YELLOW (Yellow); Glucose,Urine (UA) Negative (Negative); Ketones,Urine Negative (Negative); Leukocyte Esterase,Urine Negative (Negative); PH,Urine 6.0 (5.0-8.5); Protein,Urine Negative (Negative); Specific Gravity, Urine <= 1.005 (1.005-1.030); Urobilinogen,Urine 0.2 EU/dl (0.2)
[2025-01-08 10:22] LABS: Hematocrit 43.8 % (37.0-47.0); Hemoglobin 14.9 g/dL (12.2-16.2); Immature Granulocytes % 0.3 %; Mean Corpuscular HGB Conc 34.0 g/dL (31.8-35.4); Mean Corpuscular Hemoglobin 29.6 pg (27.0-31.2); Mean Corpuscular Volume 86.9 fl (81-99); Nucleated Red Blood Cells % 0 %; Platelet Count 354 K/mm3 (142-424); Red Blood Count 5.04 M/mm3 (4.20-5.40); Red Cell Distribution Width-SD 39.6 fL; White Blood Count 7.3 K/mm3 (4.8-10.8)
[2025-01-08 10:29] LABS: Albumin Level 4.0 g/dl (3.5-5.0); Chloride 105 mmol/L (98-107); Sodium 135 mmol/L (136-145)
[2025-01-08 10:30] LABS: Potassium 3.9 mmoL/L (3.5-5.1)
[2025-01-08 10:32] LABS: Alanine Aminotransferase 27 U/L (12-78); Albumin/Globulin Ratio 1.0 (1.1-1.8); Alkaline Phosphatase 90 U/L (38-126); Anion Gap 8.9 mEq/L (5-15); Aspartate Amino Transferase 29 U/L (14-36); Bilirubin,Total 0.2 mg/dl (0.2-1.3); Blood Urea Nitrogen 11 mg/dl (7-17); Carbon Dioxide 25 mmol/L (22.0-30.0); Creatinine Clearance Estimated 131 mL/min (50-200); Creatinine,Serum 0.70 mg/dl (0.52-1.04); Estimated Glomerular Filt Rate 91 ml/min (>60); GFR (African American) 111 ML/MIN (>60); Globulin 4.1 g/dL (1.3-3.2); Lipase 71 U/L (23-300); Total Protein,Serum 8.1 g/dl (6.3-8.2)
[2025-01-08 10:33] LABS: Calcium 9.5 mg/dl (8.4-10.2); Glucose 111 mg/dl (74-100)
[2025-01-08 10:38] LABS: HCG Qualitative, Serum Negative (Negative)
[2025-01-08] MEDS: SODIUM CHLORIDE 0.9% 10ML SYR (RAD ONLY) 10 ML IV (11:09)
[2025-01-08] MEDS: IOPAMIDOL-370 (76%);100ML BOTTLE 75 ML IV (11:09)
== END 2025-01-08 12:35 | disposition home or self-care (01) ==
PROVIDERS: Emergency Provider Student in an Organized Health Care Education/Training Program; PCP Nurse Practitioner
DX: K80.20 Calculus of gallbladder without cholecystitis without obstruction (principal); R19.7 Diarrhea, unspecified
CPT/HCPCS: 74177; 80053; 81001; 83690; 84703; 85025; 99284; Q9967

== ENCOUNTER 2025-01-17 08:19 | Outpatient (CLI) | payer OTHER, SELFPAY ==
--- NOTE | 2025-01-17 08:30 | US_ITS ---
FINAL REPORT TECHNIQUE: Multiple transverse and longitudinal images CLINICAL HISTORY: RUQ pain COMPARISON: None FINDINGS: The gallbladder shows no wall thickening, distention or stone disease. No biliary ductal dilatation is appreciated. No fluid collections are seen. Limited portions of the right liver are unremarkable. Limited portions of the right kidney are unremarkable. Pancreas is largely obscured. IMPRESSION: 1. No evidence of cholelithiasis 2. No evidence of biliary obstruction Reviewed, Interpreted and Dictated by Marley Paredes MD Transcribed by Ivana Panchal Authenticated and [facility]
== END 2025-01-17 23:59 | disposition home or self-care (01) ==
LOC: RAD 08:19
PROVIDERS: PCP Nurse Practitioner; Visit Provider Surgery
DX: R10.11 Right upper quadrant pain (principal)
CPT/HCPCS: 76705

== ENCOUNTER 2025-01-24 08:16 | Outpatient (CLI) | payer OTHER, SELFPAY ==
--- OUTSIDE RECORDS SUMMARY | 2025-01-24 08:21 | XMS_ITS | Clinical Summary ---
Author Organization [employer] [facility] are Address [address] [place], [place] [address] Phone Care Team Providers Care Rn Hospice Name Role Phone Optometric Technician Unavailable Unavailable Conditions or Problems No information available. Medications No information available. Medications Administered No information available. Allergies, Adverse Reactions, Alerts No information available. Results No information available. Plan of Care No information available. Procedures No information available. Vital Signs No information available. Immunizations No information available. Advance Directives No information available.
--- OUTSIDE RECORDS SUMMARY | 2025-01-24 08:22 | XMS_ITS | Clinical Summary ---
Author Organization [facility] Address [address] [place] [address] Phone Care Team Providers Care Buffing Wheel Operator Name Role Phone Unavailable Primary Care Provider [...] no show warning letter sent Virgilio Castellanos# [id number] 11/21/14 as expected 03/09/15 dismissal letter sent SEP Virgilio FLETCHER 05/31/15- Please do not schedule at [facility] due to multiple cancellations and New pt. No show. SAMINA WILDE 05/17/21 [id number] [facility] audit completed by Rose Sheikh RN on [...] Procedure Name Priority Date/Time Associated Diagnosis Comments BRANCH SPECIALIST CYTOLOGY REQUEST (PAP ONLY) Routine 03/30/2018 11:46 AM EDT Pap smear for cervical cancer screening from Last 3 Months or Most Recently Relevant to Health Maintenance Results * BRANCH SPECIALIST CYTOLOGY REQUEST (PAP ONLY) (03/30/2018 11:46 AM EDT) CASE REPORT Gynecologic Cytology Report Case: [id number] Authorizing Provider: Oralia Chi MD Collected: 03/30/2018 1146 Ordering Location: [facility] Received: 03/30/2018 1146 First Screen: [place] CT Specimen: LIQUID-BASED PAP - CERVICAL/ENDOCERV ICAL, Cervix, Endocervical 03/31/2018 9:34 AM EDT [facility] PAP FINAL DIAGNOSIS Negative for intraepithelial [...] before definitive therapy. Processed using the ThinPrep Lead Java Software Engineer Automated cytology screening device ([employer]). 03/31/2018 9:34 AM EDT [facility] Thin Prep ENDOCERVICAL STRUCTURE / Unknown 03/30/2018 11:46 AM EDT 03/30/2018 11:46 AM EDT us Oralia Chi MD CYTOLOGY ORDERABLES [place] [address] from Last 3 Months or Most Recently Relevant to Health Maintenance Insurance
--- OUTSIDE RECORDS SUMMARY | 2025-01-24 08:22 | XMS_ITS | Patient Health Record ---
Author Organization [facility] Address [address] [place] [address] Care Team Providers Care Crystalizer Name Role Phone Oralia Chi Primary Care Provider UnavailTavo Del Angel Unavailable [phone] Allergies Allergen (clinical drug ingredient) Drug/Non Drug [...] many cigarettes a day do you smoke? - Alcohol Screen (Audit-C) Question Answer Notes Did you have a drink containing alcohol in the p ast year? No Points 0 Interpretation Negative Tobacco use other than smoking: Question Answer Notes Are you an other tobacco user? No Problems Problem Type SNOMED Code ICD Code Onset Dates Problem Status W/U Status Risk Notes Problem Chronic pain syndrome (870859220) Chronic pain syndrome (G89.4) Active confirmed Problem Solitary sacroiliitis (554306163) Sacroiliitis, not elsewhere classified (M46.1) Active confirmed Problem Lumbosacral spondylosis without myelopathy (disorder) (23603917) Spondylosis without myelopathy or radiculopathy, lumbosacral region (M47.817) Active confirmed Problem Degeneration of lumbar intervertebral disc (51950084) Degeneration of lumbar or lumbosacral intervertebral disc (M51.37) Active confirmed Problem Lumbosacral spondylosis without myelopathy (47981860) Lumbosacral spondylosis without myelopathy (M47.817) Active confirmed Problem Cervical spondylosis without myelopathy (319855801) Cervical spondylosis without myelopathy (M47.812) Active confirmed Problem Right knee pain (446967959339973) Right knee pain (M25.561) Active confirmed Problem Cervical spondylosis (441686404) Cervical spondylosis (M47.812) Active confirmed Problem Osteoarthritis of hip (945334124) Osteoarthritis of hip, unspecified laterality, unspecified osteoarthritis [...] Date [employer] [place] [address] [address] [place] [address] [id number] Monica Bojorquez Self - patient is the insured [facility] [address] [place] [address] [id number] Monica Bojorquez Self - patient is the insured 1 2 Medical (General) History Medical History History ICD Code ALLERGIES FIBROMYALGIA Surgical History Surgery Date(Month/Year) CYST REMOVED FROM CHEST [id number] TUBAL LIGATION 2006
--- NOTE | 2025-01-24 08:30 | MM_ITS ---
PROCEDURE INFORMATION: Exam: MG Bilateral Screening 3D Mammography Exam date and time: 01/24/2025 8:26 AM Age: 44 years old Clinical indication: Screening/baseline. Her maternal aunts had breast cancer. TECHNIQUE: Imaging protocol: Bilateral Screening tomosynthesis and 2D mammography including computer-aided detection (CAD) when performed. COMPARISON: No relevant prior studies available. FINDINGS: MAMMOGRAPHY: Breast composition: There are scattered areas of fibroglandular density. Mass: None. Architectural distortion: None. Calcifications: No suspicious calcifications. Asymmetric density: None. Skin thickening: None. Axillary adenopathy: None. IMPRESSION: No mammographic evidence of malignancy. Annual screening is recommended unless otherwise clinically indicated. ASSESSMENT: BI-RADS Category 1: Negative.
--- NOTE | 2025-01-24 09:00 | US_ITS ---
PROCEDURE: US TRANSVAGINAL CLINICAL INDICATION: pelvic pain/endometriosis COMPARISON: CT CT ABDOMEN PELVIS W CON from 01/08/2025 FINDINGS: Transvaginal sonographic images of the pelvis were obtained. UTERUS: 6.8 cm x 4.8 cmx 3.4cm anteverted with a combined endometrial thickness of 4mm. LEFT OVARY: 5fou1ogo5.7cm with a volume of 4.9ml. There is a follicle in the left ovary measuring 1.5 cm x 1.4 cm x 1.4 cm. RIGHT OVARY: 2cmx 4dtz3qm with a volume of 4.1ml. There are several small follicles within the right ovary. Both ovaries are seen and appear normal. Doppler flow to both ovaries are seen. There is no fluid in the cul-de-sac. IMPRESSION: 1. Anteverted uterus normal in shape and size. The endometrium is thin measuring 4 mm. 2. Both ovaries are seen and appear normal. The right ovary has a dominant follicle measuring 1.5 cm. 3. No fluid in the cul-de-sac. Dictated by: Gurpreet Kramer MD 01/25/2025 06:14 Gurpreet Kramer MD in OV 01/25/2025 06:14
== END 2025-01-24 23:59 | disposition home or self-care (01) ==
LOC: RAD 08:17
PROVIDERS: PCP Nurse Practitioner; Visit Provider Nurse Practitioner
DX: Z12.31 Encounter for screening mammogram for malignant neoplasm of breast (principal); N83.01 Follicular cyst of right ovary; N80.9 Endometriosis, unspecified; R92.323 Mammographic fibroglandular density, bilateral breasts; R10.2 Pelvic and perineal pain
CPT/HCPCS: 76830; 77063; 77067

== ENCOUNTER 2025-04-20 09:00 | Outpatient (CLI) | payer OTHER, SELFPAY ==
[2025-04-20 16:25] LABS: Albumin Level 4.2 g/dl (3.5-5.0); Albumin/Globulin Ratio 1.4 (1.1-1.8); Anion Gap 10.4 mEq/L (5-15); Carbon Dioxide 25 mmol/L (22.0-30.0); Chloride 104 mmol/L (98-107); Cholesterol 170 mg/dl (140-200); Globulin 2.9 g/dL (1.3-3.2); Glucose 108 mg/dl (74-100); Potassium 4.4 mmoL/L (3.5-5.1); Sodium 135 mmol/L (136-145); Total Protein,Serum 7.1 g/dl (6.3-8.2); Triglycerides 121 mg/dl (30-150)
[2025-04-20 16:26] LABS: Alanine Aminotransferase 24 U/L (12-78); Alkaline Phosphatase 95 U/L (38-126); Aspartate Amino Transferase 25 U/L (14-36); Bilirubin,Total 0.5 mg/dl (0.2-1.3); Blood Urea Nitrogen 16 mg/dl (7-17); Calcium 9.7 mg/dl (8.4-10.2); Creatinine,Serum 0.80 mg/dl (0.52-1.04); Estimated Glomerular Filt Rate 78 ml/min (>60); GFR (African American) 94 ML/MIN (>60); HDL Cholesterol 38 mg/dl (40-60)
[2025-04-20 17:01] LABS: Hemoglobin A1C 5.6 % (4.0-6.0)
--- OUTSIDE RECORDS SUMMARY | 2025-04-21 11:13 | XMS_ITS | Clinical Summary ---
Author Organization [facility] are Address [address] [place], [place] [address] Phone Care Team Providers Care Wash House Supervisor Name Role Phone Rate Quoting Operator Unavailable Unavailable Conditions or Problems No information available. Medications No information available. Medications Administered No information available. Allergies, Adverse Reactions, Alerts No information available. Results No information available. Plan of Care No information available. Procedures No information available. Vital Signs No information available. Immunizations No information available. Advance Directives No information available.
--- OUTSIDE RECORDS SUMMARY | 2025-04-21 11:14 | XMS_ITS | Patient Health Record ---
Author Organization [facility] Address [address] [place] [address] Care Team Providers Care Operations Administrative Assistant Name Role Phone Oralia Chi Primary Care Provider UnavailTavo Del Angel Unavailable [phone] Allergies Allergen (clinical drug ingredient) Drug/Non Drug [...] Status Risk Notes Problem Chronic pain syndrome (383102475) Chronic pain syndrome (G89.4) Active confirmed Problem Solitary sacroiliitis (400341560) Sacroiliitis, not elsewhere classified (M46.1) Active confirmed Problem Lumbosacral spondylosis without myelopathy (disorder) (66347310) Spondylosis without myelopathy or radiculopathy, lumbosacral region (M47.817) Active confirmed Problem Degeneration of lumbar intervertebral disc (95287115) Degeneration of lumbar or lumbosacral intervertebral disc (M51.37) Active confirmed Problem Lumbosacral spondylosis without myelopathy (14578804) Lumbosacral spondylosis without myelopathy (M47.817) Active confirmed Problem Cervical spondylosis without myelopathy (215286746) Cervical spondylosis without myelopathy (M47.812) Active confirmed Problem Right knee pain (640541869491022) Right knee pain (M25.561) Active confirmed Problem Cervical spondylosis (848067384) Cervical spondylosis (M47.812) Active confirmed Problem Osteoarthritis of hip (340635259) Osteoarthritis of hip, unspecified laterality, unspecified osteoarthritis [...] Date [employer] [place] [address] [address] [place] [address] [phone] [id number] Monica Bojorquez Self - patient is the insured [facility] [address] [place] [address] [id number] Monica Bojorquez Self - patient is the insured 1 2 Medical (General) History Medical History History ICD Code ALLERGIES FIBROMYALGIA Surgical History Surgery Date(Month/Year) CYST REMOVED FROM CHEST [id number] TUBAL LIGATION 2006
--- OUTSIDE RECORDS SUMMARY | 2025-04-21 11:14 | XMS_ITS | Clinical Summary ---
Author Organization [facility] Address [address] [place] [address] Phone Care Team Providers Care Solid Waste Facility Operator Name Role Phone Unavailable Primary Care [...] no show warning letter sent Virgilio Castellanos# [phone] 11/21/14 as expected 03/09/15 dismissal letter sent SEP Virgilio FLETCHER 05/31/15- Please do not schedule at [facility] due to multiple cancellations and New pt. No show. SAMINA WILDE 05/17/21 [id number] [facility] audit completed by Rose Sheikh RN on [...] etcalf not [place] Heart Failure Paternal Grandmother Developmental Disability Paternal Uncle Lyle Cao Relation Name Status [...] 03/30/2021 03/30/2018, 09/30/2014 COVID-19 Vaccine ( - 2024-2 6 season) 2025 Influenza Vaccine (#1) 2025 8, 02/24/2015 (Declined), [...] Procedure Name Priority Date/Time Associated Diagnosis Comments TOW BOAT CAPTAIN CYTOLOGY REQUEST (PAP ONLY) Routine 03/30/2018 11:46 AM EDT Pap smear for cervical cancer screening from Last 3 Months or Most Recently Relevant to Health Maintenance Results * TOW BOAT CAPTAIN CYTOLOGY REQUEST (PAP ONLY) (03/30/2018 11:46 AM EDT) CASE REPORT Gynecologic Cytology Report Case: [id number] Authorizing Provider: Oralia Chi MD Collected: 03/30/2018 1146 Ordering Location: [facility] Received: 03/30/2018 1146 First Screen: [place] CT Specimen: LIQUID-BASED PAP - CERVICAL/ENDOCERV ICAL, Cervix, Endocervical 03/31/2018 9:34 AM EDT [facility] PAP FINAL DIAGNOSIS Negative for intraepithelial lesion or malignancy 03/31/2018 9:34 AM EDT [facility] at 0933 EDT MICROSCOPIC DESCRIPTION Microscopic examination is performed and the findings corroborate the diagnosis. 03/31/2018 9:34 AM EDT [facility] PAP SMEAR ADEQUACY Satisfactory for evaluation 03/31/2018 9:34 AM EDT [facility] ENDOCERVICAL T-ZONE Transformation zone absent. 03/31/2018 9:34 AM EDT [facility] EMBEDDED IMAGES 9:34 AM EDT [facility] PAP DISCLAIMER The Pap Smear is a screening test that aids in the detection of cervical cancer and cancer precursors. Both false positive and false negative results can occur. The test should be used at regular intervals, and positive results should be confirmed before definitive therapy. Processed using the ThinPrep Industrial Diamond Polisher Automated cytology screening device ([employer]). 03/31/2018 9:34 AM EDT [facility] Thin Prep ENDOCERVICAL STRUCTURE / Unknown 03/30/2018 11:46 AM EDT 03/30/2018 11:46 AM EDT us Oralia Chi MD CYTOLOGY ORDERABLES [place] [address] from Last 3 Months or Most Recently Relevant to Health Maintenance Insurance
== END 2025-04-20 23:59 ==
LOC: LAB.DROPOF 04-21 10:56
PROVIDERS: PCP Nurse Practitioner; Visit Provider Nurse Practitioner
DX: E78.5 Hyperlipidemia, unspecified (principal); R73.01 Impaired fasting glucose
CPT/HCPCS: 80053; 80061; 83036